=== PATIENT | male | born 1975 | race African-American/Black ===

== ENCOUNTER 2019-12-19 19:50 | Emergency (ER) | payer MEDICAID ==
[~2019-12-19] VITALS: Ht 185.4 cm; Wt 64.8 kg
[2019-12-19 19:58] VITALS: BP 134/71
[2019-12-19] MEDS ORDERED: OXYcodone/APAP 5/325MG TABLET ONE (20:21)
--- NOTE | 2019-12-19 20:23 | NUR ---
MEDS ADMIN PER JAN.
[2019-12-19] MEDS ORDERED: LIDOCAINE-MPF 1%, 5ML ONE (20:28)
[2019-12-19] MEDS ORDERED: OXYcodone/APAP 5/325MG TABLET PO ONE (20:30)
== END 2019-12-19 20:38 | disposition home or self-care (01) ==
LOC: ED 20:00
DX: K02.9 Dental caries, unspecified (principal)
CPT/HCPCS: 99283